=== PATIENT | male | born 1990 | race Caucasian/White ===

== ENCOUNTER 2018-11-11 23:58 | Emergency (ER) | payer SELFPAY ==
[~2018-11-11] VITALS: Ht 172.7 cm; Wt 74.8 kg
== END 2018-11-12 01:20 | disposition home or self-care (01) ==
LOC: FSED 23:58
DX: R05 Cough (principal); R19.7 Diarrhea, unspecified; B34.9 Viral infection, unspecified
CPT/HCPCS: 99283